=== PATIENT | male | born 1995 | race Two or more races ===

== ENCOUNTER 2017-09-11 15:06 | Emergency (ER) | payer SELFPAY ==
[~2017-09-11] VITALS: Ht 175.3 cm; Wt 72.6 kg
[~2017-09-11 15:06] MED LIST: NAPROSYN500 M1 ORAL
--- NOTE | 2017-09-11 15:49 | Emergency Room Report ---
History of Present Illness General Chief Complaint: Alcohol Intoxication Source: Patient Present Illness HPI Patient is a 22-year-old man who presents today with alcohol intoxication. Patient is brought by his mother as she is concerned that he has been drinking too much lately. Patient states he drank a pint of vodka this morning. Patient denies any suicidal or homicidal ideation. Denies any other drug use. Allergies: Coded Allergies: No Known Allergies (Unverified , 09/07/13) Patient History Reviewed Nursing Documentation: PMH: Agreed; PSxH: Agreed Nursing Documentation-PM Past Medical History: No Stated History Hx Cardiac Problems: Yes - HEART STENT 2013 Review of Systems Psychiatric: Reports: other - intoxication All Other Systems: negative except mentioned in HPI Physical Exam Vital Signs Date Time Temp Pulse Resp B/P (MAP) Pulse Ox O2 Delivery O2 Flow Rate FiO2 09/11/17 15:01 98.9 104 20 130/77 94 Room Air 99.0 Sp02 EP Interpretation: reviewed, normal General Appearance: no apparent distress, alert, GCS 15, non-toxic Head: normocephalic, atraumatic Eyes: bilateral eye normal inspection, bilateral eye PERRL ENT: hearing grossly normal, normal pharynx, no angioedema, normal voice Neck: full range of motion, supple/symm/no masses Respiratory: chest non-tender, lungs clear, normal breath sounds, speaking full sentences Cardiovascular #1: regular rate, rhythm, no edema Cardiovascular #2: 2+ carotid (R), 2+ carotid (L), 2+ radial (R), 2+ radial (L) , 2+ dorsalis pedis (R), 2+ dorsalis pedis (L) Gastrointestinal: normal bowel sounds, non tender, soft, non-distended, no guarding, no rebound Rectal: deferred Genitourinary: normal inspection, no CVA tenderness Musculoskeletal: back normal, gait/station normal, normal range of motion, non- tender, calf tenderness Neurologic: alert, oriented x3, responsive, motor strength/tone normal, sensory intact, speech normal Psychiatric: judgement/insight normal, memory normal, mood/affect normal, no suicidal/homicidal ideation, other - A&Ox4 Reflexes: 3+ bicep (R), 3+ bicep (L), 3+ tricep (R), 3+ tricep (L), 3+ knee (R) , 3+ knee (L) Skin: normal color, no rash, warm/dry, well hydrated Lymphatic: no adenopathy Medical Decision Making Reaction to Intervention: Improved Diagnostic Impression: Primary Impression: Alcohol intoxication ER Course Findings consistent with alcohol abuse. Patient admits to drinking vodka this morning, however patient is clinically sober. He is ambulatory without difficulty in, conversive and equal 4. He adamantly denies suicidal or homicidal ideation. Resources are given for outpatient alcohol treatment programs. Patient expresses desire to quit drinking alcohol. Patient understands plan and is agreeable. Last Vital Signs Date Time Temp Pulse Resp B/P (MAP) Pulse Ox O2 Delivery O2 Flow Rate FiO2 09/11/17 15:01 98.9 104 20 130/77 94 Room Air 99.0 Status: improved Disposition: HOME, SELF-CARE Condition: Stable Patient Instructions: Alcohol Abuse and Nutrition Tammy Holguin Sep 11, 2017 15:49
[2017-09-11 15:51] VITALS: BP 130/77
== END 2017-09-11 15:52 | disposition left against medical advice (07) ==
LOC: EDBD 15:06 → EMR 15:52
DX: F10.129 Alcohol abuse with intoxication, unspecified (principal)
CPT/HCPCS: 99283

== ENCOUNTER → 2018-01-16 | Emergency (ER) | payer MEDICAID, OTHER ==
[~2018-01-16] VITALS: Ht 170.2 cm; Wt 83.9 kg
[2018-01-16 21:15] VITALS: BP 134/87
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
[2018-01-16 21:41] VITALS: BP_SYST 130; BP_SYST 134; BP_DIAS 77; BP_DIAS 87
--- NOTE | 2018-01-17 10:14 | Diagnostic Imaging Report ---
Indication: Headache Technique: Contiguous 5 mm thick transaxial imaging of the head obtained in a Siemens Sensation [address] scanner. Soft tissue and bone windows generated. Automatic Exposure Control was utilized. Total Dose length Product (DLP): 1439.[address] Dose Index Volume (CTDIvol): 70.38 mGy Comparison: none Findings: The size and configuration of the cortical sulci, basal cisterns, and ventricles are within normal limits for age. There is no mass effect, midline shift, or edema identified. There is no evidence of acute hemorrhage or abnormal intra-axial or extra-axial fluid collections. There is soft tissue swelling in the left periorbital region. Impression: No mass effect, edema or acute bleed. Left periorbital soft tissue contusion The CT scanner at [facility] is accredited by the [employer] and the scans are performed using dose optimization techniques as appropriate to a performed exam including Automatic Exposure control.
== END | disposition home or self-care (01) ==
LOC: EDUNIT# 19:49 → EDBD 20:01 → EMR 20:24
DX: F10.129 Alcohol abuse with intoxication, unspecified (principal); S09.90XA Unspecified injury of head, initial encounter; X58.XXXA Exposure to other specified factors, initial encounter; Y93.9 Activity, unspecified; Y92.013 Bedroom of single-family (private) house as the place of occurrence of the external cause; Z88.0 Allergy status to penicillin
CPT/HCPCS: 70450; 99284; 99285

== ENCOUNTER 2018-09-20 00:41 | Emergency (ER) | payer MEDICAID, OTHER ==
[~2018-09-20] VITALS: Ht 172.7 cm; Wt 63.5 kg
[2018-09-20 00:55] VITALS: BP 118/68
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
[2018-09-20 03:30] VITALS: BP 118/68
[2018-09-20 05:38] VITALS: BP 125/70
[2018-09-20 06:06] VITALS: BP 125/70
== END 2018-09-20 06:07 | disposition home or self-care (01) ==
LOC: EDBD 00:41 → EMR 01:00
DX: S61.214A Laceration without foreign body of right ring finger without damage to nail, initial encounter (principal); F10.929 Alcohol use, unspecified with intoxication, unspecified; Z95.5 Presence of coronary angioplasty implant and graft; Z88.0 Allergy status to penicillin; W25.XXXA Contact with sharp glass, initial encounter; Y92.9 Unspecified place or not applicable
CPT/HCPCS: 12001; 99283; Z7502

== ENCOUNTER 2018-12-23 04:00 | Emergency (ER) | payer MEDICAID, OTHER ==
[~2018-12-23] VITALS: Ht 170.2 cm; Wt 72.6 kg
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
[2018-12-23 04:45] VITALS: BP 127/76
[2018-12-23] MEDS ORDERED: Neosporin Oint Ud Pkt TOPIC ONE ×2 (04:47→05:00)
--- NOTE | 2018-12-23 04:50 | NUR ---
ER DISCHARGE NOTE: Patient is cleared to be discharged per ERMD, pt is aox4, on room air, with stable vital signs. pt was given dc and prescription instructions, pt was able to verbalize understanding, pt id band removed without complications. pt is able to ambulate with steady gait. pt took all belongings.
--- NOTE | 2018-12-23 05:24 | Diagnostic Imaging Report ---
Indication: Headache and head trauma Technique: Contiguous 5 mm thick transaxial imaging of the head obtained in a Siemens Sensation [address] scanner. Soft tissue and bone windows generated. Automatic Exposure Control was utilized. Total Dose length Product (DLP): 1446.[address] Dose Index Volume (CTDIvol): 70.38 mGy Comparison: none Findings: The size and configuration of the cortical sulci, basal cisterns, and ventricles are within normal limits for age. There is no mass effect, midline shift, or edema identified. There is no evidence of acute hemorrhage or abnormal intra-axial or extra-axial fluid collections. The bones and soft tissues are unremarkable. Impression: No mass effect, edema or acute bleed. [facility] has communicated the preliminary results to the Emergency Department. Their findings are largely concordant with this report. The CT scanner at [facility] is accredited by the [employer] and the scans are performed using dose optimization techniques as appropriate to a performed exam including Automatic Exposure control.
== END 2018-12-23 04:55 ==
LOC: EDBD 04:00 → EMR 04:42
DX: S09.90XA Unspecified injury of head, initial encounter (principal); F10.920 Alcohol use, unspecified with intoxication, uncomplicated; S00.511A Abrasion of lip, initial encounter; S00.83XA Contusion of other part of head, initial encounter; Z88.0 Allergy status to penicillin; Y04.2XXA Assault by strike against or bumped into by another person, initial encounter; Z95.5 Presence of coronary angioplasty implant and graft
CPT/HCPCS: 70450; 99284

== ENCOUNTER 2019-12-20 19:02 | Emergency (ER) | payer BC, MEDICAID, OTHER ==
[~2019-12-20] VITALS: Ht 170.2 cm; Wt 77.1 kg
[2019-12-20 19:06] VITALS: BP 133/77
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
--- NOTE | 2019-12-20 19:10 | Emergency Room Report ---
History of Present Illness General Chief Complaint: Seizure Source: Patient, Medical Record Present Illness HPI Disclaimer: Please note that this report is being documented using DRAGON technology. This can lead to erroneous entry secondary to incorrect interpretation by the dictating instrument. HPI: 24-year-old male history of alcohol abuse and seizure disorder presents for evaluation after seizure. He arrives by EMS along with his mother. Mother states that he was at rest watching TV on the couch when suddenly began convulsing falling forward striking his head against the ground. Total convulsions lasted approximately 1 minutes. She reports a postictal phase lasting until the paramedics arrived. EMS said they found him confused but improved on the ride. Vitals were stable en route. No further seizure-like activity noted. He states he has a mild headache but now is awake, alert and only complaining of some pain over the tongue which he appears to have suffered a small abrasion. Patient states he has been drinking alcohol regularly for the past 10 days. Last beer was this morning. He has had seizures before related to alcohol use but is not taking any medications for the seizures. Denies history of delirium tremens PMH: Alcohol abuse PSH: Denied Allergies: Penicillin Social Hx: Alcohol abuse Allergies: Coded Allergies: PENICILLINS (Unverified Allergy, Unknown, 01/16/18) COVID-19 Screening Contact w/high risk pt: No Experienced COVID-19 symptoms?: No COVID-19 Testing performed MANAGER PRODUCE: No Nursing Documentation-PMH Past Medical History: No History, Except For Hx Cardiac Problems: Yes - HEART STENT 2013 Hx Seizures: Yes - from ETOH withdrawl Review of Systems All Other Systems: negative except mentioned in HPI Physical Exam Vital Signs Date Time Temp Pulse Resp B/P (MAP) Pulse Ox O2 Delivery O2 Flow Rate FiO2 12/20/19 18:56 98.2 92 18 133/77 (95) 99 Room Air General: Awake and alert, no acute distress HEENT: NC/AT. EOMI. PERRLA. No facial bone tenderness, no midface instability. Visual laird are full. No nystagmus. Facial expressions are symmetrical. Abrasion over the tip of the tongue. Nonbleeding. No loose dentition. Cardiovascular: RRR. S1 and S2 normal. No murmur appreciated Resp: Normal work of breathing. No cough, wheezing or crackles appreciated Abdomen: Abdomen is soft, nondistended. Nontender Skin: Intact. No abrasions, laceration or rash over the exposed skin MSK: Normal tone and bulk. Moving all extremities. No obvious deformity. Neuro: Awake and alert. Mentating appropriately. Facial expression symmetrical. No dysarthria, no ataxia on oyewhr-btzh-uduyoi or [id number]-qwyo testing. Sensation to light touch is intact over the upper and lower extremities. The patient has intact speech with good repetition, comprehension. Fund of knowledge is full Medical Decision Making Diagnostic Impression: Primary Impression: Alcohol abuse Additional Impression: Seizure ER Course Is a 24-year-old male presenting after a seizure. He arrives awake, alert and at his neurologic baseline. Vital signs are stable. No evidence of acute withdrawal. He admits to heavy alcohol use lately likely the cause of his seizures. Will obtain broad labs and a CT scan of the head given his injury. Laceration on the tongue does not require closure. Labs were obtained and returned within normal limits. Alcohol level negative. Likely the patient experienced seizure secondary to alcohol abuse. He was loaded with Keppra and will be discharged on Keppra and Librium. He is awake alert at his neurologic baseline. [facility] was contacted to suspend his license. Seizure precautions were discussed with patient. He was discharged to the care of his mother. Advised him to return to a rehab facility which the patient has completed in the past. Counseled that his alcohol abuse would likely have serious detrimental effects on his health and possibly can lead to his . We discussed reasons to return to the emergency department. He understood and agreed with this treatment plan. Laboratory Tests Test 12/20/19 19:30 12/20/19 19:43 White Blood Count 5.8 K/UL (4.8-10.8) Red Blood Count 4.91 M/UL (4.70-6.10) Hemoglobin 15.6 G/DL (14.2-18.0) Hematocrit 46.5 % (42.0-52.0) Mean Corpuscular Volume 95 FL (80-99) Mean Corpuscular Hemoglobin 31.7 PG (27.0-31.0) H Mean Corpuscular Hemoglobin Concent 33.5 G/DL (32.0-36.0) Red Cell Distribution Width 11.6 % (11.6-14.8) Platelet Count 188 K/UL (150-450) Mean Platelet Volume 6.3 FL (6.5-10.1) L Neutrophils (%) (Auto) 64.4 % (45.0-75.0) Lymphocytes (%) (Auto) 25.1 % (20.0-45.0) Monocytes (%) (Auto) 8.5 % (1.0-10.0) Eosinophils (%) (Auto) 0.9 % (0.0-3.0) Basophils (%) (Auto) 1.1 % (0.0-2.0) Sodium Level 135 MMOL/L (136-145) L Potassium Level 3.5 MMOL/L (3.5-5.1) Chloride Level 99 MMOL/L (98-107) Carbon Dioxide Level 26 MMOL/L (21-32) Anion Gap 10 mmol/L (5-15) Blood Urea Nitrogen 9 mg/dL (7-18) Creatinine 1.0 MG/DL (0.55-1.30) Estimated Glomerular Filtration Rate > 60 mL/min (>60) Glucose Level 111 MG/DL (74-106) H Calcium Level 9.2 MG/DL (8.5-10.1) Total Bilirubin 1.5 MG/DL (0.2-1.0) H Direct Bilirubin 0.3 MG/DL (0.0-0.3) Aspartate Amino Transferase (AST) 81 U/L (15-37) H Alanine Aminotransferase (ALT) 70 U/L (12-78) Alkaline Phosphatase 82 U/L (46-116) Total Protein 7.5 G/DL (6.4-8.2) Albumin 4.0 G/DL (3.4-5.0) Globulin 3.5 g/dL Albumin/Globulin Ratio 1.1 (1.0-2.7) Serum Alcohol < 3 mg/dL POC Whole Blood Glucose Pending EKG Diagnostic Results EKG Time: 19:27 Rate: normal Rhythm: NSR ST Segments: no acute changes Other Impression Sinus rhythm, normal axis, normal intervals, no ST segment changes Rhythm Strip Diag. Results Rhythm Strip Time: 19:27 EP Interpretation: yes Rate: 80 Rhythm: NSR, no PVC's, no ectopy Last Vital Signs Date Time Temp Pulse Resp B/P (MAP) Pulse Ox O2 Delivery O2 Flow Rate FiO2 12/20/19 18:56 98.2 92 18 133/77 (95) 99 Room Air Disposition: HOME, SELF-CARE Condition: Stable Scripts Chlordiazepoxide Hcl* (LIBRIUM*) 10 Mg Capsule 10 MG ORAL THREE TIMES A DAY, #15 CAP 0 Refills Prov: Sheldon Whitfield MD 12/20/19 Levetiracetam (KEPPRA) 500 Mg Tablet 500 MG ORAL EVERY 12 HOURS, #60 TAB 0 Refills Prov: Sheldon Whitfield MD 12/20/19 Sheldon Whitfield MD Dec 20, 2019 19:10
--- NOTE | 2019-12-20 19:10 | NUR ---
ED Nurse Note: all medications adminstered, pt tolerated well no ss of distress noted. will continue to monitor.
[2019-12-20] MEDS ORDERED: levETIRAcetam 1,000mg/NS100ml 100 ML IVPB ONE (19:15)
--- NOTE | 2019-12-20 19:30 | NUR ---
ED Nurse Note: ERMD at bedside
--- NOTE | 2019-12-20 19:46 | Diagnostic Imaging Report ---
EXAM: CT Head Without Intravenous Contrast CLINICAL HISTORY: INJ TECHNIQUE: Axial computed tomography images of the head/brain without intravenous contrast. CTDI is 53.4 mGy and DLP is 1072.2 mGy-cm. One or more of the following dose reduction techniques were used: automated exposure control, adjustment of the mA and/or kV according to patient size, use of iterative reconstruction technique. COMPARISON: CT abdomen and pelvis dated 12/23/2018 FINDINGS: Brain: Unremarkable. No hemorrhage. No significant white matter disease. No edema. Ventricles: Unremarkable. No ventriculomegaly. Bones/joints: Unremarkable. No acute fracture. Soft tissues: Unremarkable. Sinuses: Unremarkable as visualized. No acute sinusitis. Mastoid air cells: Unremarkable as visualized. No mastoid effusion. IMPRESSION: No acute intracranial abnormality.
[2019-12-20 19:56] LABS: ANION GAP 10 mmol/L (5-15); BLOOD UREA NITROGEN 9 mg/dL (7-18); CALCIUM 9.2 MG/DL (8.5-10.1); CARBON DIOXIDE 26 MMOL/L (21-32); CHLORIDE 99 MMOL/L (98-107); POTASSIUM 3.5 MMOL/L (3.5-5.1); SODIUM 135 MMOL/L (136-145)
[2019-12-20 19:57] LABS: BASOPHILS % (AUTO) 1.1 % (0.0-2.0); EOSINOPHILS % (AUTO) 0.9 % (0.0-3.0); HEMATOCRIT 46.5 % (42.0-52.0); HEMOGLOBIN 15.6 G/DL (14.2-18.0); LYMPHOCYTES % (AUTO) 25.1 % (20.0-45.0); MEAN CORPUSCULAR VOLUME 95 FL (80-99); MONOCYTES % (AUTO) 8.5 % (1.0-10.0); NEUTROPHILS % (AUTO) 64.4 % (45.0-75.0); PLATELET COUNT 188 K/UL (150-450); RED BLOOD COUNT 4.91 M/UL (4.70-6.10); RED CELL DISTRIBUTION WIDTH 11.6 % (11.6-14.8); WHITE BLOOD COUNT 5.8 K/UL (4.8-10.8)
[2019-12-20 20:07] LABS: ALANINE AMINOTRANSFERASE 70 U/L (12-78); ALBUMIN/GLOBULIN RATIO 1.1 (1.0-2.7); ALKALINE PHOSPHATASE 82 U/L (46-116); ASPARTATE AMINO TRANSFERASE 81 U/L (15-37); BILIRUBIN,TOTAL 1.5 MG/DL (0.2-1.0)
[2019-12-20 20:09] LABS: BILIRUBIN,DIRECT 0.3 MG/DL (0.0-0.3)
--- NOTE | 2019-12-20 20:10 | NUR ---
ED Nurse Note: ERMD at bedside
[2019-12-20] MEDS ORDERED: KEPPRA500 M4 ORAL (20:15)
[2019-12-20] MEDS ORDERED: LIBRIUM10 MG ORAL ×2 (20:15→21:31)
[2019-12-20 20:36] VITALS: BP 125/68
--- NOTE | 2019-12-20 20:36 | NUR ---
ER DISCHARGE NOTE: Patient is cleared to be discharged home with mother per ERMD, pt is aox4, on room air, with stable vital signs. pt was given dc and prescription instructions, pt was able to verbalize understanding, pt id band and iv site removed without complications. pt is able to ambulate with steady gait. pt took all belongings. pt verbalized understanding of discharge instructions
--- NOTE | 2019-12-20 20:57 | NUR ---
[place] of counsciousness form faxed to [facility]
== END 2019-12-20 20:36 | disposition home or self-care (01) ==
LOC: EDBD 19:02 → EMR 20:28
DX: G40.909 Epilepsy, unspecified, not intractable, without status epilepticus (principal); F10.10 Alcohol abuse, uncomplicated; Z88.0 Allergy status to penicillin; S00.512A Abrasion of oral cavity, initial encounter; X58.XXXA Exposure to other specified factors, initial encounter; Y92.9 Unspecified place or not applicable; Z95.5 Presence of coronary angioplasty implant and graft
CPT/HCPCS: 70450; 80053; 82248; 82962; 85025; 93005; 96361; 96374; G0480; J1953; J7030; Z7502; 99284